=== PATIENT | male | born 1990 | race Two or more races ===

== ENCOUNTER 2017-02-27 04:48 | Emergency (ER) | payer SELFPAY ==
[~2017-02-27] VITALS: Ht 182.9 cm; Wt 65.7 kg
[2017-02-27 08:00] VITALS: BP 95/51
== END 2017-02-27 09:35 | disposition home or self-care (01) ==
LOC: ED 09:29
DX: F10.120 Alcohol abuse with intoxication, uncomplicated (principal); R41.82 Altered mental status, unspecified
CPT/HCPCS: 99283